=== PATIENT | female | born 1960 | race Caucasian/White ===

== ENCOUNTER 2024-02-02 09:29 | Outpatient (CLI) | payer OTHER ==
[~2024-02-02] VITALS: Ht 170.2 cm; Wt 76.8 kg
[2024-02-02 09:18] VITALS: BP 111/58; PULSE 100; TEMP 99.6
[~2024-02-02 09:29] MED LIST: AKTOB 5 ML5 ML OP; EFFER-K20 MEQ PO; FOLIC ACID 11 MG/TA1 PO; MAG-OX 400400 MG/TAB PO; MIRTAZAPINE7.5 MG PO; NATURE'S BLEND100 M2 PO; NEURONTIN300 MG/CAP PO; NOVOLOG 100U100 U/M1 SQ; NS 1000 10001000 ML IV; PROTONIX 40MG T40 MG PO
--- NOTE | 2024-02-02 10:42 | NUR ---
Hx reviewed with pt. Hospital med list also reviewed, pt states she thinks she took this morning's doses, but cannot provide names of meds she took. Pt resting in bed, she is assisted to adjust to position of comfort. She is resting with eyes closed, occasionally opening them to look at nurse during review of history. VIKTORIYA wrap in place to PICC line to rt upper arm. Ivelisse, [employer] in dept to arrange transport back to [facility]. Call light in reach.
--- NOTE | 2024-02-02 11:00 | NUR ---
Pt exits dept in care of [facility]. Pt alert, free of acute complaints. Pt will be transported back to [facility] for further cares. PIC information packet sent with pt.
== END 2024-02-02 11:00 | disposition short-term general hospital (02) ==
LOC: EUO 09:29
DX: R62.7 Adult failure to thrive (principal)
CPT/HCPCS: C1751